=== PATIENT | female | born 1980 | race American Indian/Alaskan Native ===

== ENCOUNTER 2019-02-27 16:11 | Inpatient (IN) | payer OTHER ==
[2019-02-27] MEDS ORDERED: SUBLIMAZE IV PRN (16:43)
[2019-02-27] MEDS ORDERED: BRETHINE SUB-Q PRN (16:43)
--- NOTE | 2019-02-27 16:47 | History and Physical Report ---
History of Present Illness Date of examination: 02/27/19 Date of admission: 01/27/19 Chief complaint: Labor History of present illness: 38 year old presents in active advanced labor. Patient received care at [facility]. LMP 06/06/18. EDC 03/13/19. significant for the following: AMA, right axillary lump, LSIL pap, vitamin D deficiency, anemia, GBS positive. Past History Past Medical History: no pertinent history Past Surgical History: no surgical history [facility] [employer]ING History: abnormal PAP smear, chlamydia, gonorrhea, hepatitis B, hepatitis C, herpes, HIV, syphilis Family/Genetic History: none Social history: full code. denies: smoking, alcohol abuse, prescription drug abuse, IV drug use - Obstetrical History Expected Date of Delivery: 03/13/19 Actual Gestation: 38 Week(s) 0 Day(s) : 4 Para: 2 Hx # Term Pregnancies: 2 Number of Pregnancies: 0 Spontaneous Abortions: 0 Induced : 1 Number of Living Children: 2 Medications and Allergies Allergies Allergy/AdvReac Type Severity Reaction Status Date / Time No Known Allergies Allergy Verified 02/27/19 21:50 Home Medications Medication Instructions Recorded Confirmed Last Taken Type No Known Home Medications [No 02/27/19 02/27/19 Unknown History Reported Home Medications] Active Meds: Active Medications Ephedrine Sulfate (Ephedrine Sulfate) 10 mg IV Q2M PRN PRN Reason: Hypotension Fentanyl (Sublimaze) 100 mcg IV Q2H PRN PRN Reason: Labor Pain Oxytocin/Sodium Chloride (Pitocin/Ns 20 Unit/1000ml Drip) 20 units in 1,000 mls @ 125 mls/hr IV DIRECT ASHLEY Lactated Ringer's (Lactated Ringers) 1,000 mls @ 125 mls/hr IV DIRECT ASHLEY Ampicillin Sodium (Ampicillin/Ns 2 Gm/100 Ml) 2 gm in 100 mls @ 100 mls/hr IV ONCE ONE; Protocol Stop: 02/27/19 17:42 Ampicillin Sodium (Ampicillin/Ns 1 Gm/50 Ml) 1 gm in 50 mls @ 100 mls/hr IV Q4HR ASHLEY; Protocol Terbutaline Sulfate (Brethine) 0.25 mg SUB-Q ONCE PRN PRN Reason: Hyperstimulation/Hypertonicity Review of Systems All systems: negative (contractions) - Physical Exam Abdomen: Positive: normal appearance, soft. Negative: distention, tenderness, guarding, rigidity Genitourinary (Female): Positive: normal external genitalia, normal perenium. Negative: perineal/vulvar lesions Vagina: Positive: normal moisture Uterus: Positive: enlarged (s=d) Extremities: Positive: normal. Negative: tenderness, edema - Obstetrical FHR: category 1 Uterine Contraction Monitor Mode: External Cervical Dilatation: 7 Cervical Effacement Percentage: 100 station: -1 Uterine Contraction Pattern: Regular Uterine Contraction Intensity: Moderate Results All other labs normal. Assessment and Plan A: at 38 weeks gestation. Active advanced labor. GBS positive. P: Admit. EFM. GBS prophylaxis.
[2019-02-27] MEDS ORDERED: AMPICILLIN/NS 2 GM/100 ML 2 GM/100 ML BAG IV ONE (17:00)
[2019-02-27] MEDS ORDERED: LACTATED RINGERS 1,000 ML IV SCH (17:00)
[2019-02-27] MEDS ORDERED: PITOCin/NS 20 UNIT/1000ML DRIP 20 UNITS/1,000 ML BAG IV SCH (17:00)
[2019-02-27] MEDS ORDERED: XYLOCAINE 2% INFILTRATI ONE (18:27)
[2019-02-27] MEDS ORDERED: TUCKS PAD TP PRN (19:22)
[2019-02-27] MEDS ORDERED: BENADRYL PO PRN (19:22)
[2019-02-27] MEDS ORDERED: PHENERGAN PR PRN (19:22)
[2019-02-27] MEDS ORDERED: LANSINOH TP PRN (19:22)
[2019-02-27] MEDS ORDERED: MILK OF MAGNESIA PO PRN (19:22)
[2019-02-27] MEDS ORDERED: DULCOLAX PR PRN (19:22)
[2019-02-27] MEDS ORDERED: NORCO 5/325 PO PRN (19:22)
--- NOTE | 2019-02-27 19:27 | Procedure Note ---
OB Delivery Note - Delivery Date of Delivery: 02/27/19 Surgeon: LOC EVERETT Estimated blood loss: other (150 cc) - Vaginal Delivery presentation: vertex Delivery position: OA Intrapartum events: none Delivery induction: none Delivery monitor: external FHT, external uterine, internal FHT Route of delivery: Delivery placenta: spontaneous Delivery cord: 3 umbilical vessels, other (short cord) Episiotomy: none Delivery laceration: none Anesthesia: none Delivery comments: Spontaneous vaginal delivery at 19:00 of liveborn male weighing 3102 grams over intact perineum with apgars of 8/9. Meconium stained amniotic fluid; NICU called to delivery. Baby was born vigorous; suctioned with bulb, dried. 3 vessel cord double clamped and cut. Baby taken to radiant warmer for further suctioning. Spontaneous delivery of intact placenta and membranes. EBL 150 cc. Pitocin to IV fluids after delivery of placenta. Fundus firm and midline. No lacerations noted. Vaginal sweep negative. Mother and baby stable.
[2019-02-27] MEDS ORDERED: SODIUM CHLORIDE FLUSH SYRINGE 10 ML IV NR (20:00)
[2019-02-27] MEDS ORDERED: AMPICILLIN/NS 1 GM/50 ML 1 GM/50 ML BAG IV SCH (20:46)
[2019-02-28] MEDS: IBUPROFEN PO SCH ×5 (00:05→23:17)
[2019-02-28 08:04] LABS: Hematocrit 31.2 % (30.3-42.9); Hemoglobin 10.5 gm/dl (10.1-14.3)
--- NOTE | 2019-02-28 10:48 | Progress Note ---
Assessment and Plan - Patient Problems (1) Status post normal vaginal delivery Current Visit: Yes Status: Acute Plan to address problem: PPD 1 - stable Continue routine orders Anticipate discharge in 24 hours Subjective - Subjective Date of service: 02/28/19 Principal diagnosis: PPD #1; s/p Interval history: see H&P and OB Delivery Procedure Note Patient reports: appetite normal, voiding normally, pain well controlled, ambulating normally, no dizzy ambulation [place]: doing well Objective - Vital Signs Latest vital signs: Vital Signs Temp Pulse Resp BP BP Pulse Ox 02/28/19 09:22 98.1 F 78 18 113/68 99 02/28/19 00:30 98.7 F 74 16 118/72 02/27/19 20:45 98.1 F 62 18 133/73 100 02/27/19 20:03 65 118/74 02/27/19 19:48 76 119/73 02/27/19 19:33 86 118/72 02/27/19 19:18 85 123/65 02/27/19 19:17 98.5 F 18 02/27/19 19:13 92 H 142/68 02/27/19 18:27 78 118/70 02/27/19 16:53 98.4 F Intake and Output 02/27/19 02/28/19 02/28/19 23:59 07:59 15:59 Output Total 300 400 Balance -300 -400 Output: Urine 300 400 Void 300 400 Other: Total, Output Amount 300 400 Weight 77.111 kg Estimated Blood Loss 150 - Exam Abdomen: Present: normal appearance, soft Vulva: both: normal Uterus: Present: normal, firm, fundal height at umbilicus Extremities: Present: normal Comments: small lochia
[2019-03-01] MEDS: IBUPROFEN PO SCH (05:29)
--- NOTE | 2019-03-01 09:47 | Discharge Summary ---
Providers - Providers Date of Admission: 02/27/19 16:42 Date of discharge: 03/01/19 (1200) Attending physician: MAGALI RESTREPO MD Primary care physician: [facility] Hospitalization Reason for admission: active labor Delivery: Episiotomy: none Laceration: none Other procedures: none complications: none Discharge diagnosis: IUP at term delivered baby: male Hospital course: See admission H & P, OB delivery summary, PP progress reports Condition at discharge: Good Disposition: DC-01 TO HOME OR SELFCARE - Discharge Diagnoses (1) Status post normal vaginal delivery Status: Acute (2) Anemia Status: Acute Qualifiers: Anemia type: other cause Other causes of anemia: acute posthemorrhagic Qualified Code(s): D62 - Acute posthemorrhagic anemia Plan - Provider Discharge Summary Activity: routine, no sex for 6 weeks, no heavy lifting 4 weeks, no strenuous e xercise Diet: other (Iron rich foods) Additional instructions: [] Smoking cessation referral if applicable(refer to patient education folder for contact #) [] Refer to [facility]'s [facility] Booklet Call your doctor immediately for: * Fever > 100.5 * Heavy vaginal bleeding ( >1 pad per hour) * Severe persistent headache * Shortness of breath * Reddened, hot, painful area to leg or breast * Drainage or odor from incision. - Follow up plan Follow up: PRIMARY CARE, [Primary Care Provider] - 7 Days
[2019-03-01 17:21] VITALS: BP 121/77
== END 2019-03-01 20:20 | disposition home or self-care (01) | DRG 775 ==
LOC: TRG 16:11 → LD 16:42 → OB 21:03
PROVIDERS: ADMIT Obstetrics & Gynecology; ATTEND Obstetrics & Gynecology
PROC: 10E0XZZ Delivery of Products of Conception, External Approach (ICD-10-PCS; principal; 2019-02-27)
DX: O99.824 Streptococcus B carrier state complicating childbirth (principal); Z37.0 Single live birth; Z3A.38 38 weeks gestation of pregnancy; O69.3XX0 Labor and delivery complicated by short cord, not applicable or unspecified; O77.0 Labor and delivery complicated by meconium in amniotic fluid; D62 Acute posthemorrhagic anemia; O90.81 Anemia of the puerperium
CPT/HCPCS: 36415; 85014; 85018; 86592; 86850; 86900; 86901; G0378; J0290; J2590; J3010; J7120

== ENCOUNTER 2020-08-18 12:28 | Emergency (ER) | payer OTHER ==
[2020-08-18] MEDS ORDERED: SODIUM CHLORIDE 0.9% 1000 ML 1,000 ML IV ONE (13:10)
[2020-08-18] MEDS ORDERED: ONDANSETRON 4 MG/2 ML INJ IV ONE (13:10)
[2020-08-18] MEDS ORDERED: MORPHINE 4 MG/1 ML INJ IV ONE (13:10)
--- NOTE | 2020-08-18 13:13 | Emergency Department Report ---
ED Abdominal Pain HPI - General Chief Complaint: Abdominal Pain Stated Complaint: ABD PAINS Time Seen by Provider: 08/18/20 12:58 Source: patient Mode of arrival: Ambulatory Limitations: No Limitations - History of Present Illness Initial Comments: pt is a 39 yo female who presents to the ED with c/o RLQ abd pain that began suddenly at 9 AM today. she has associated N/V and chills. she denies any diarrhea, urinary symptoms, abnormal vaginal discharge, fever, hematchezia, hematoemesis, melena. no PMHx. no allergies to meds. LNMP last week. she is on depo. she denies any past abdominal surgical history. - Related Data Previous Rx's Medication Instructions Recorded Last Taken Type Ferrous Gluconate [Ferrous 324 mg PO BID 30 Days #60 tablet 03/01/19 Unknown Rx Gluconate 324 MG] HYDROcodone/APAP 5-325 [Lares 1 each PO Q6HR PRN #10 tablet 08/18/20 Unknown Rx 5/325] Ketorolac [Toradol] 10 mg PO Q6H PRN #8 tablet 08/18/20 Unknown Rx Promethazine [Phenergan] 25 mg PO Q8HR PRN #10 tab 08/18/20 Unknown Rx Tamsulosin [Flomax] 0.4 mg PO QDAY #7 cap 08/18/20 Unknown Rx Allergies Allergy/AdvReac Type Severity Reaction Status Date / Time No Known Allergies Allergy Verified 02/27/19 21:50 ED Review of Systems ROS: Stated complaint: ABD PAINS Other details as noted in HPI Comment: All other systems reviewed and negative ED Past Medical Hx - Past Medical History Previous Medical History?: No Hx Congestive Heart Failure: No Hx Diabetes: No Hx Asthma: No Hx COPD: No - Surgical History Past Surgical History?: No - Social History Smoking Status: Never Smoker Substance Use Type: None - Medications Home Medications: Home Medications Medication Instructions Recorded Confirmed Last Taken Type Ferrous Gluconate [Ferrous 324 mg PO BID 30 Days #60 tablet 03/01/19 Unknown Rx Gluconate 324 MG] HYDROcodone/APAP 5-325 [Lares 1 each PO Q6HR PRN #10 tablet 08/18/20 Unknown Rx 5/325] Ketorolac [Toradol] 10 mg PO Q6H PRN #8 tablet 08/18/20 Unknown Rx Promethazine [Phenergan] 25 mg PO Q8HR PRN #10 tab 08/18/20 Unknown Rx Tamsulosin [Flomax] 0.4 mg PO QDAY #7 cap 08/18/20 Unknown Rx ED Physical Exam - General Limitations: No Limitations General appearance: alert, in no apparent distress - Head Head exam: Present: atraumatic, normocephalic - Eye Eye exam: Present: normal appearance - ENT ENT exam: Present: mucous membranes moist - Respiratory Respiratory exam: Present: normal lung sounds bilaterally. Absent: respiratory distress, wheezes, rales, rhonchi, stridor, chest wall tenderness, accessory muscle use, decreased breath sounds, prolonged expiratory - Cardiovascular Cardiovascular Exam: Present: regular rate, normal rhythm, normal heart sounds. Absent: systolic murmur, diastolic murmur, rubs, gallop - GI/Abdominal GI/Abdominal exam: Present: soft, tenderness (RUQ, RLQ), normal bowel sounds. A bsent: distended, guarding, rebound, rigid - Neurological Exam Neurological exam: Present: alert, oriented X3 - Psychiatric Psychiatric exam: Present: normal affect, normal mood - Skin Skin exam: Present: warm, dry, intact ED Course Vital Signs 08/18/20 08/18/20 12:33 16:55 Temperature 98.1 F 98.0 F Pulse Rate 63 60 Respiratory 16 18 Rate Blood Pressure 121/76 O2 Sat by Pulse 100 100 Oximetry ED Medical Decision Making - Lab Data Result diagrams: 08/18/20 13:33 08/18/20 13:33 Lab Results 08/18/20 08/18/20 08/18/20 Range/Units 13:33 13:33 13:33 WBC 7.7 (4.5-11.0) K/mm3 RBC 5.07 H (3.65-5.03) M/mm3 Hgb 13.9 (10.1-14.3) gm/dl Hct 42.8 (30.3-42.9) % MCV 84 (79-97) fl MCH 28 (28-32) pg MCHC 33 (30-34) % RDW 14.0 (13.2-15.2) % Plt Count 227 (140-440) K/mm3 Lymph % (Auto) 13.5 (13.4-35.0) % [place] % (Auto) 3.4 (0.0-7.3) % Eos % (Auto) 0.1 (0.0-4.3) % Baso % (Auto) 0.5 (0.0-1.8) % Lymph # (Auto) 1.0 L (1.2-5.4) K/mm3 [place] # (Auto) 0.3 (0.0-0.8) K/mm3 Eos # (Auto) 0.0 (0.0-0.4) K/mm3 Baso # (Auto) 0.0 (0.0-0.1) K/mm3 Seg Neutrophils % 82.5 H (40.0-70.0) % Seg Neutrophils # 6.3 (1.8-7.7) K/mm3 Sodium 142 (137-145) mmol/L Potassium 3.6 (3.6-5.0) mmol/L Chloride 110.7 H (98-107) mmol/L Carbon Dioxide 24 (22-30) mmol/L Anion Gap 11 mmol/L BUN 6 L (7-17) mg/dL Creatinine 0.7 (0.6-1.2) mg/dL Estimated GFR > 60 ml/min BUN/Creatinine Ratio 9 % Glucose 98 (65-100) mg/dL Calcium 8.4 (8.4-10.2) mg/dL Total Bilirubin 0.20 (0.1-1.2) mg/dL AST 15 (5-40) units/L ALT 10 (7-56) units/L Alkaline Phosphatase 65 (35-129) units/L Total Protein 7.4 (6.3-8.2) g/dL Albumin 4.2 (3.9-5) g/dL Albumin/Globulin Ratio 1.3 % Lipase 20 (13-60) units/L HCG, Qual Negative (Negative) Urine Color (Yellow) Urine Turbidity (Clear) Urine pH (5.0-7.0) Ur Specific [place] (1.003-1.030) Urine Protein (Negative) mg/dL Urine Glucose (UA) (Negative) mg/dL Urine Ketones (Negative) mg/dL Urine Blood (Negative) Urine Nitrite (Negative) Urine Bilirubin (Negative) Urine Urobilinogen (<2.0) mg/dL Ur Leukocyte Esterase (Negative) Urine WBC (Auto) (0.0-6.0) /HPF Urine RBC (Auto) (0.0-6.0) /HPF U Epithel Cells (Auto) (0-13.0) /HPF Urine Bacteria (Auto) (Negative) /HPF Hyaline Casts /LPF Urine Mucus /HPF 08/18/20 Range/Units Unknown WBC (4.5-11.0) K/mm3 RBC (3.65-5.03) M/mm3 Hgb (10.1-14.3) gm/dl Hct (30.3-42.9) % MCV (79-97) fl MCH (28-32) pg MCHC (30-34) % RDW (13.2-15.2) % Plt Count (140-440) K/mm3 Lymph % (Auto) (13.4-35.0) % [place] % (Auto) (0.0-7.3) % Eos % (Auto) (0.0-4.3) % Baso % (Auto) (0.0-1.8) % Lymph # (Auto) (1.2-5.4) K/mm3 [place] # (Auto) (0.0-0.8) K/mm3 Eos # (Auto) (0.0-0.4) K/mm3 Baso # (Auto) (0.0-0.1) K/mm3 Seg Neutrophils % (40.0-70.0) % Seg Neutrophils # (1.8-7.7) K/mm3 Sodium (137-145) mmol/L Potassium (3.6-5.0) mmol/L Chloride (98-107) mmol/L Carbon Dioxide (22-30) mmol/L Anion Gap mmol/L BUN (7-17) mg/dL Creatinine (0.6-1.2) mg/dL Estimated GFR ml/min BUN/Creatinine Ratio % Glucose (65-100) mg/dL Calcium (8.4-10.2) mg/dL Total Bilirubin (0.1-1.2) mg/dL AST (5-40) units/L ALT (7-56) units/L Alkaline Phosphatase (35-129) units/L Total Protein (6.3-8.2) g/dL Albumin (3.9-5) g/dL Albumin/Globulin Ratio % Lipase (13-60) units/L HCG, Qual (Negative) Urine Color Yellow (Yellow) Urine Turbidity Slightly-cloudy (Clear) Urine pH 5.0 (5.0-7.0) Ur Specific [place] 1.028 (1.003-1.030) Urine Protein 30 mg/dl (Negative) mg/dL Urine Glucose (UA) Neg (Negative) mg/dL Urine Ketones Neg (Negative) mg/dL Urine Blood Lg (Negative) Urine Nitrite Neg (Negative) Urine Bilirubin Neg (Negative) Urine Urobilinogen < 2.0 (<2.0) mg/dL Ur Leukocyte Esterase Neg (Negative) Urine WBC (Auto) 4.0 (0.0-6.0) /HPF Urine RBC (Auto) 19.0 (0.0-6.0) /HPF U Epithel Cells (Auto) 4.0 (0-13.0) /HPF Urine Bacteria (Auto) 1+ (Negative) /HPF Hyaline Casts 1 /LPF Urine Mucus 2+ /HPF Vital Signs 08/18/20 08/18/20 12:33 16:55 Temperature 98.1 F 98.0 F Pulse Rate 63 60 Respiratory 16 18 Rate Blood Pressure 121/76 O2 Sat by Pulse 100 100 Oximetry - Radiology Data Radiology results: report reviewed Ordering Physician: RUBÉN TIM Date of Service: 08/18/20 Procedure(s): CT abdomen pelvis w con Accession Number(s): [id number] cc: RUBÉN TIM CT abdomen pelvis w con INDICATION / CLINICAL INFORMATION: Right lower quadrant abdominal pain with nausea and vomiting. TECHNIQUE: Axial CT imaging of abdomen and pelvis was obtained with IV contrast. Coronal and sagittal reformatted imaging obtained and reviewed. All CT scans at this location are performed using CT dose reduction for ALARA by means of automated exposure control. COMPARISON: None available. FINDINGS: CT abdomen with contrast demonstrates normal appearance of the liver, spleen, pancreas, left kidney, and adrenal glands. Gallbladder is grossly unremarkable. No biliary dilatation. There is mild/moderate right hydronephrosis present. The obstruction is caused by a 3 mm calculus in the distal right ureter just slightly proximal to the right ureteral orifice. The right kidney is mildly enlarged and there is mild perinephric fluid indicative of calyceal rupture. CT pelvis with contrast demonstrates normal appearance of the appendix. No pelvic mass, free fluid, or focal inflammatory changes noted. GI tract is unremarkable. Visualized lung bases are clear. No acute skeletal abnormality identified. IMPRESSION: 1. Mild to moderate right hydronephrosis caused by a 3 mm calculus in the very distal right ureter. 2. No other significant abnormality. Signer Name: Laura Hdez MD Signed: 08/18/2020 3:34 PM Workstation Name: [id number] Transcribed By: Dictated By: Laura Hdez MD Electronically Authenticated By: Laura Hdez MD Signed Date/Time: 08/18/201533 DD/ 29 TD/TT: - Medical Decision Making pt is a 39 yo female who presents to the ED with c/o RLQ abd pain that began suddenly at 9 AM today. she has associated N/V and chills. she denies any diarrhea, urinary symptoms, abnormal vaginal discharge, fever, hematchezia, hematoemesis, melena. no PMHx. no allergies to meds. LNMP last week. she is on depo. she denies any past abdominal surgical history. Vitals are normal. On exam patient has right lower quadrant tenderness outpatient, no guarding, no rebound, no rigidity, normal bowel sounds, no peritoneal signs. Labs are stable. hCG is negative. UA shows small amount of red blood cells, no signs of UTI. CT abdomen pelvis with IV contrast 1. Mild to moderate right hydronephrosis caused by a 3 mm calculus in the very distal right ureter. 2. No other significant abnormality. Patient given medications while in the emergency department and symptoms improved and she was feeling much better and ready to go home. She had no further episodes of vomiting while in the ED and was able to tolerate p.o. intake. Patient given prescription for Flomax, Lares, Toradol, Phenergan. Advised patient please take medication as prescribed. increase your water intake. do not drive or operate heavy machinery while taking pain medication. follow up with a primary care doctor. follow up with a urologist. return to the emergency room for any new or worsening symptoms. Critical care attestation.: If time is entered above; I have spent that time in minutes in the direct care of this critically ill patient, excluding procedure time. ED Disposition Clinical Impression: Nephrolithiasis Abdominal pain Qualifiers: Abdominal location: right lower quadrant Qualified Code(s): R10.31 - Right lower quadrant pain Nausea & vomiting Qualifiers: Vomiting type: unspecified Vomiting Intractability: non-intractable Qualified Code(s): R11.2 - Nausea with vomiting, unspecified Hydronephrosis Qualifiers: Hydronephrosis type: with renal calculous obstruction Qualified Code(s): N13.2 - Hydronephrosis with renal and ureteral calculous obstruction Disposition: TO HOME OR SELFCARE Is pt being admited?: No Does the pt Need Aspirin: No Condition: Stable Instructions: Kidney Stones, Hydronephrosis, Abdominal Pain (ED) Additional Instructions: please take medication as prescribed. increase your water intake. do not drive or operate heavy machinery while taking pain medication. follow up with a primary care doctor. follow up with a urologist. return to the emergency room for any new or worsening symptoms. Prescriptions: Tamsulosin [Flomax] 0.4 mg PO QDAY #7 cap HYDROcodone/APAP 5-325 [Lares 5/325] 1 each PO Q6HR PRN #10 tablet PRN Reason: Pain , Severe (7-10) Promethazine [Phenergan] 25 mg PO Q8HR PRN #10 tab PRN Reason: Nausea Ketorolac [Toradol] 10 mg PO Q6H PRN #8 tablet PRN Reason: Pain, Moderate (4-6) Referrals: PRIMARY CARE, [Primary Care Provider] - 2-3 Days SOULEYMANE MILLER MD [Staff Physician] - 2-3 Days Time of Disposition: 15:45 Print Language: SLOVENIAN
[2020-08-18 14:14] LABS: Basophils % (Auto) 0.5 % (0.0-1.8); Eosinophils % (Auto) 0.1 % (0.0-4.3); Hematocrit 42.8 % (30.3-42.9); Hemoglobin 13.9 gm/dl (10.1-14.3); Lymphocytes % (Auto) 13.5 % (13.4-35.0); Mean Corpuscular HGB Conc 33 % (30-34); Mean Corpuscular Volume 84 fl (79-97); Monocytes # (Auto) 0.3 K/mm3 (0.0-0.8); Monocytes % (Auto) 3.4 % (0.0-7.3); Platelet Count 227 K/mm3 (140-440); Red Blood Count 5.07 M/mm3 (3.65-5.03)
[2020-08-18 14:18] LABS: Bacteria,Urine 1+ /HPF (Negative); Bilirubin,Urine NEG (Negative); Blood,Urine LG (Negative); Color,Urine Yellow (Yellow); Hyaline Casts,Urine 1 /LPF; Mucus,Urine 2+ /HPF; Urobilinogen,Urine < 2.0 mg/dL (<2.0)
[2020-08-18 14:35] LABS: Alanine Aminotransferase 10 units/L (7-56); Albumin 4.2 g/dL (3.9-5); Blood Urea Nitrogen 6 mg/dL (7-17); Calcium 8.4 mg/dL (8.4-10.2); Hemolysis Index 11
[2020-08-18 14:36] LABS: BUN/Creatinine Ratio 9
--- NOTE | 2020-08-18 15:38 | Cat Scan Report ---
CT abdomen pelvis w con INDICATION / CLINICAL INFORMATION: Right lower quadrant abdominal pain with nausea and vomiting. TECHNIQUE: Axial CT imaging of abdomen and pelvis was obtained with IV contrast. Coronal and sagittal reformatte d imaging obtained and reviewed. All CT scans at this location are performed using CT dose reduction for ALARA by means of automated exposure control. COMPARISON: None available. FINDINGS: CT abdomen with contrast demonstrates normal appearance of the liver, spleen, pancreas, left kidney, and adrenal glands. Gallbladder is grossly unremarkable. No biliary dilatation. There is mild/moderate right hydronephrosis present. The obstruction is caused by a 3 mm calculus in the distal right ureter just slightly proximal to the right ureteral orifice. The right kidney is mil dly enlarged and there is mild perinephric fluid indicative of calyceal rupture. CT pelvis with contrast demonstrates normal appearance of the appendix. No pelvic mass, free fluid, o r focal inflammatory changes noted. GI tract is unremarkable. Visualized lung bases are clear. No acute skeletal abnormality identified. IMPRESSION: 1. Mild to moderate right hydronephrosis caused by a 3 mm calculus in the very distal right ureter. 2. No other significant abnormality. Signer Name: Laura Hdez MD Signed: 08/18/2020 3:34 PM Workstation Name: [id number]
[2020-08-18 17:01] VITALS: BP 121/76
== END 2020-08-18 17:03 | disposition home or self-care (01) ==
LOC: ED 12:28
DX: N20.0 Calculus of kidney (principal); N13.30 Unspecified hydronephrosis; R10.31 Right lower quadrant pain; R11.2 Nausea with vomiting, unspecified; Z79.899 Other long term (current) drug therapy
CPT/HCPCS: 36415; 74177; 80053; 81001; 83690; 84703; 85025; 96361; 96374; 96375; 99284; J2270; J2405; J7030; Q9967

== ENCOUNTER 2020-11-20 08:23 | Emergency (ER) | payer OTHER ==
[2020-11-20 08:43] VITALS: BP 136/96
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
== END 2020-11-20 09:48 | disposition home or self-care (01) ==
LOC: ED 08:23
DX: S39.012A Strain of muscle, fascia and tendon of lower back, initial encounter (principal); Z79.899 Other long term (current) drug therapy; V49.49XA Driver injured in collision with other motor vehicles in traffic accident, initial encounter; Y93.89 Activity, other specified; Y92.488 Other paved roadways as the place of occurrence of the external cause; Y99.8 Other external cause status
CPT/HCPCS: 99282